=== PATIENT | female | born 1990 | race Caucasian/White ===

== ENCOUNTER 2016-10-08 12:25 | Emergency (ER) | payer MEDICAID ==
[~2016-10-08] VITALS: Ht 162.6 cm; Wt 68.0 kg
[2016-10-08 13:06] LABS: BG BASE EXCESS 0.7 mmol/L (-2.0-2.0); BG DEOXYHEMOGLOBIN 2.4 % (0.0-5.0); BG FRACTION INSPIRED OXYGEN 21; BG HCO3 ACT 24.4 mmol/L (22.0-26.0); BG METHEMOGLOBIN 0.3 % (0.0-1.5); BG OXYGEN SATURATION 97.6 % (92.0-98.5); BG OXYHEMOGLOBIN 96.3 % (94.0-97.0); BG PCO2 35.7 mmHg (35.0-45.0); BG PH 7.452 (7.350-7.450); BG PO2 96.7 mmHg (75.0-100.0); BG SAMPLE SITE RIGHT BRACHIAL; BG TOTAL HEMOGLOBIN 12.1 g/dL (12.0-18.0); BG VENT MODE ROOM AIR
[2016-10-08 13:13] LABS: HEMATOCRIT. 36.9 % (36.0-48.0); HEMOGLOBIN. 11.9 g/dL (12.0-16.0); LYMPHOCYTES % 18.1 % (20.0-50.0); MEAN CORPUSCULAR HEMOGLOBIN 27.8 pg (28.0-32.0); MEAN CORPUSCULAR HGB CONC 32.2 g/dL (31.0-37.0); MEAN CORPUSCULAR VOLUME 86.2 fL (81.0-99.0); MEAN PLATELET VOLUME 7.7 fl (7.4-10.4); MONOCYTES % 4.2 % (2.0-8.0); NEUTROPHILS % 75.7 % (40.0-76.0); PLATELET 244 x1000/uL (130-400); RED BLOOD CELL COUNT 4.27 mill/uL (4.2-5.4); WHITE BLOOD COUNT 5.8 x1000/uL (4.5-11.0)
[2016-10-08 13:22] LABS: INR 1.3; PARTIAL THROMBOPLASTIN TIME 26.8 sec (24.0-34.0); PROTHROMBIN TIME 13.6 sec
[2016-10-08 13:27] LABS: CHLORIDE 107 mEq/L (98-107); INDEX HEMOLYSI 1 (1-3); INDEX ICTERIC 1 (1-4); INDEX LIPEMIC 1 (1-3)
[2016-10-08 13:37] LABS: ALANINE AMINOTRANSFERASE 34 IU/L (13-61); ALBUMIN 2.5 g/dL (3.4-5.0); ANION GAP 12; CALCIUM 7.5 mg/dL (8.5-10.1); CARBON DIOXIDE 28 mEq/L (21-32); NT PRO B-TYPE NATRIURETIC PEP 4925 pg/mL (5-125); UREA NITROGEN BLOOD 26 mg/dL (7-21); eGFR 60 mL/min (>60)
[2016-10-08 14:51] LABS: HCG SCREEN NEGATIVE
[2016-10-08 15:15] VITALS: BP 115/84
== END 2016-10-08 15:52 | disposition home or self-care (01) ==
LOC: ER 12:34
DX: I50.9 Heart failure, unspecified (principal)
CPT/HCPCS: 36415; 36600; 71010; 80053; 82375; 82805; 83880; 84703; 85025; 85610; 85730; 93005; 99285; Z7610